=== PATIENT | female | born 1965 | race Caucasian/White ===

== ENCOUNTER → 2016-08-01 | Outpatient (CLI) | payer BC ==
[~2016-08-01] MED LIST: ALD250 PO; AMLO-114 PO; BIOTPOW17 PO; CALC-51 PO; CIPR-255 PO; DULO60CA44 PO; HYDC25 PO; HYDR25TA4 PO; LORA-741 PO; LPR50X PO; Lorazepam PO; METH250T21 PO; METR-163 PO; Magnesium PO; Maxalt PO; NASACORT; ONDA4TAB10 SL; OXYC1TAB3 PO; POLY335019 PO; POTAPOW29 PO; RIZA10TA18 PO; SERT1TAB68 PO; VITAMIN C PO; metoprolol PO
--- NOTE | 2016-08-01 16:02 | MAMMOGRAPHY REPORT ---
BILATERAL DIGITAL SCREENING MAMMOGRAM TOMOSYNTHESIS WITH CAD: 08/01/2016 CLINICAL HISTORY: Routine screening. Patient has no complaints. TECHNIQUE: Breast tomosynthesis in addition to standard 2D mammography was performed. Current study was also evaluated with a Computer Aided Detection (CAD) system. COMPARISON: Comparison is made to exams dated: 07/20/2015 mammogram, 06/30/2014 mammogram, 06/24/2013 m ammogram, 06/08/2012 mammogram, and 05/02/2011 mammogram - [facility]. BREAST COMPOSITION: There are scattered areas of fibroglandular density in both breasts. FINDINGS: No suspicious masses, calcifications, or areas of architectural distortion are noted in e ither breast. There has been no significant interval change compared to prior exams. IMPRESSION: ACR BI-RADS CATEGORY 1: NEGATIVE There is no mammographic evidence of malignancy. A 1 year screening mammogram is recommended. The p atient will receive written notification of the results. Approximately 10% of breast cancers are not detected with mammography. A negative mammographic repor t should not delay biopsy if a clinically suggestive mass is present. Maribel Marques M.D. 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
== END | disposition home or self-care (01) ==
LOC: C.MAMM 13:13
PROVIDERS: ATTEND Nurse Practitioner Family
DX: Z12.31 Encounter for screening mammogram for malignant neoplasm of breast (principal)

== ENCOUNTER 2017-02-08 04:50 | Emergency (ER) | payer BC ==
[~2017-02-08] VITALS: Ht 154.9 cm; Wt 91.1 kg
[~2017-02-08 04:50] MED LIST changes: -CIPR-255 PO; -DULO60CA44 PO; -HYDR25TA4 PO; -LORA-741 PO; -LPR50X PO; -METH250T21 PO; -METR-163 PO; -ONDA4TAB10 SL; -OXYC1TAB3 PO; -POLY335019 PO; -RIZA10TA18 PO
[2017-02-08 04:53] VITALS: TEMP 36.9; Ht 154.9 cm; Wt 91.1 kg
--- NOTE | 2017-02-08 05:12 | EMERGENCY ROOM VISIT NOTE ---
History Report prepared by Gracie: Braydon Lang Under the Supervision of: Dr. Gm Hernandez M.D. First contact with patient: 04:58 Chief Complaint: GI ASSESSMENT Stated Complaint: BOWEL BLOCKAGE AND BLOOD History of Present Illness The patient is a 51 year old female who presents to the Emergency Room with complaints of persistent left lower abdominal pain that started yesterday. She says that she does not feel well, and has been nauseous and feels like vomiting. The patient states that after the pain came on, she felt like she had to have a bowel movement, so she sat on the toilet, but as she was trying to push, she broke out in sweats from head to toe, and she had to sit on the toilet for 2 hours before finally having a bowel movement. The patient states that she had streaks of blood in the stool, but the blood was not filling the toilet. She notes that her pain has persisted. She denies any rashes or vaginal bleeding. She adds that she has had symptoms like this in the past, once she thinks due to pain medications after surgery. Source of History: patient Onset: Yesterday Position: abdomen (LLQ) Timing: other (persistent) Associated Symptoms: + diaphoresis, + nausea, + hematochezia, No rash Note: Associated symptoms: Feels like vomiting. Denies vaginal bleeding. Review of Systems See HPI for pertinent positives & negatives. A total of 10 systems reviewed and were otherwise negative. Past Medical & Surgical Medical Problems: (1) Anxiety (2) Depression (3) HTN (hypertension) Family History No pertinent family history Social History Smoking Status: Never Smoker Marital Status: Occupation Status: employed Current/Historical Medications Scheduled Amlodipine (Norvasc), 10 MG PO DAILY Ciprofloxacin Hcl (Cipro), 500 MG PO BID Duloxetine Hcl (Cymbalta), 60 MG PO DAILY Hydrochlorothiazide (Hctz), 25 MG PO DAILY Methyldopa (Aldomet), 250 MG PO BID Metoprolol Tartrate (Metoprolol Tartrate), 1 TAB PO DAILY Metronidazole (Flagyl), 500 MG PO TID Ondasetron Odt (Zofran Odt), 4 MG SL Q6H Scheduled PRN Lorazepam (Ativan), 0.5 MG PO DAILY PRN for Anxiety Oxycodone Immediate Rel Tab (Roxicodone Ir), 1-2 TAB PO Q4H PRN for Severe Pain Polyethylene Glycol 3350 (Miralax), 17 GM PO BID PRN for Constipation Rizatriptan Benzoate (Maxalt), 10 MG PO DAILY PRN for Headache Allergies Coded Allergies: Bupropion (Verified Allergy, Mild, Anxious feeling, 02/08/17) Lisinopril (Verified Allergy, Mild, Unknown, 02/08/17) Diltiazem (Verified Allergy, Unknown, COUGH, 02/08/17) Fexofenadine (Verified Allergy, Unknown, HTN, 02/08/17) Losartan (Verified Allergy, Unknown, Cough, 02/08/17) Pseudoephedrine (Verified Allergy, Unknown, HTN, 02/08/17) Venlafaxine (Verified Allergy, Unknown, HTN, 02/08/17) Physical Exam Vital Signs Date Time Temp Pulse Resp B/P (MAP) Pulse Ox O2 Delivery O2 Flow Rate FiO2 02/08/17 09:00 84 20 154/67 98 02/08/17 07:42 95 20 155/100 97 Room Air 02/08/17 06:22 88 18 172/75 98 Room Air 02/08/17 04:53 36.9 114 20 154/90 97 Room Air Physical Exam GENERAL: Patient is uncomfortable appearing and in moderate distress. HEENT: No acute trauma, normocephalic atraumatic, mucous membranes moist, no nasal congestion, no scleral icterus. NECK: No stridor, no adenopathy, no meningismus, trachea is midline. LUNGS: No dyspnea. Clear to auscultation and equal bilaterally. No wheeze, no rhonchi. HEART: Regular rate and rhythm. No murmurs, rubs, gallops appreciated. ABDOMEN: Soft, left lower quadrant tenderness to palpation, bowel sounds positive, no masses appreciated, no peritonitis. RECTAL: Small anterior fissure, has dark firm bloody stool. BACK: No midline tenderness, no CVA tenderness EXTREMITIES: Normal motion all extremities, no cyanosis, no edema. NEUROLOGIC: Alert and oriented, no acute motor or sensory deficits, no focal weakness, cranial nerves grossly intact. SKIN: No rash, no jaundice, no diaphoresis. Medical Decision & Procedures Laboratory Results 02/08/17 05:35 Red Blood Count 5.11, Mean Corpuscular Volume 87.9, Mean Corpuscular Hemoglobin 29.4, Mean Corpuscular Hemoglobin Concent 33.4, Mean Platelet Volume 9.5, Neutrophils (%) (Auto) 85.5, Lymphocytes (%) (Auto) 8.5, Monocytes (%) (Auto) 5.5, Eosinophils (%) (Auto) 0.0, Basophils (%) (Auto) 0.1, Neutrophils # (Auto) 16.39, Lymphocytes # (Auto) 1.63, Monocytes # (Auto) 1.05, Eosinophils # (Auto) 0.00, Basophils # (Auto) 0.02 02/08/17 05:35 Test 02/08/17 05:20 02/08/17 05:35 02/08/17 05:46 Urine Color DK YELLOW Urine Appearance TURBID (CLEAR) Urine pH 5.0 (4.5-7.5) Urine Specific [place] 1.026 (1.000-1.030) Urine Protein 2+ (NEG) Urine Glucose (UA) NEG (NEG) Urine Ketones TRACE (NEG) Urine Occult Blood TRACE (NEG) Urine Nitrite NEG (NEG) Urine Bilirubin NEG (NEG) Urine Urobilinogen NEG (NEG) Urine Leukocyte Esterase SMALL (NEG) Urine WBC (Auto) 10-30 /hpf (0-5) Urine RBC (Auto) 0-4 /hpf (0-4) Urine Hyaline Casts (Auto) 0 /lpf (0-5) Urine Epithelial Cells (Auto) >30 /lpf (0-5) Urine Bacteria (Auto) NEG (NEG) Urine Renal Epithelial Cells /lpf (0-5) Urine Crystals AMORPHOUS SEDIMENT (NONE Urine Pathogenic Casts /lpf (0) Urine Test NEG (NEG) White Blood Count 19.16 K/uL (4.8-10.8) Red Blood Count 5.11 M/uL (4.2-5.4) Hemoglobin 15.0 g/dL (12.0-16.0) Hematocrit 44.9 % (37-47) Mean Corpuscular Volume 87.9 fL (80-100) Mean Corpuscular Hemoglobin 29.4 pg (25-34) Mean Corpuscular Hemoglobin Concent 33.4 g/dl (32-36) Platelet Count 385 K/uL (130-400) Mean Platelet Volume 9.5 fL (7.4-10.4) Neutrophils (%) (Auto) 85.5 % Lymphocytes (%) (Auto) 8.5 % Monocytes (%) (Auto) 5.5 % Eosinophils (%) (Auto) 0.0 % Basophils (%) (Auto) 0.1 % Neutrophils # (Auto) 16.39 K/uL (1.4-6.5) Lymphocytes # (Auto) 1.63 K/uL (1.2-3.4) Monocytes # (Auto) 1.05 K/uL (0.11-0.59) Eosinophils # (Auto) 0.00 K/uL (0-0.5) Basophils # (Auto) 0.02 K/uL (0-0.2) RDW Standard Deviation 40.1 fL (36.4-46.3) RDW Coefficient of Variation 12.5 % (11.5-14.5) Immature Granulocyte % (Auto) 0.4 % Immature Granulocyte # (Auto) 0.07 K/uL (0.00-0.02) Est Creatinine Clear Calc Drug Dose 77.7 ml/min Estimated GFR () 88.8 Estimated GFR (Non- 76.6 BUN/Creatinine Ratio 12.3 (10-20) Calcium Level 9.7 mg/dl (8.5-10.1) Total Bilirubin 0.6 mg/dl (0.2-1) Direct Bilirubin 0.2 mg/dl (0-0.2) Aspartate Amino Transf (AST/SGOT) 39 U/L (15-37) Alanine Aminotransferase (ALT/SGPT) 68 U/L (12-78) Alkaline Phosphatase 118 U/L (45-117) Total Protein 8.0 gm/dl (6.4-8.2) Albumin 4.3 gm/dl (3.4-5.0) Lipase 109 U/L (73-393) Bedside Hemoglobin 15.3 g/dl (12.0-16.0) Bedside Hematocrit 45 % (37-47) Bedside Sodium 138 mEq/L (135-144) Bedside Potassium 3.1 mEq/L (3.3-5.0) Bedside Chloride 98 mEq/L (101-112) Bedside Total CO2 25 mEq/l (24-31) Anion Gap 19.0 mmol/L (16-25) Bedside Blood Urea Nitrogen 10 mg/dl (7-18) Bedside Creatinine 0.7 mg/dl (0.6-1.3) Bedside Glucose (other) 140 mg/dl (70-99) Bedside Ionized Calcium (Vicente) 1.08 mmol/l (1.12-1.32) Medications Administered Medications (Trade) Dose Ordered Sig/Valeriy Route Start Time Stop Time Status Last Admin Dose Admin Sodium Chloride 1,000 ml @ 999 mls/hr Q1H1M STAT IV 02/08/17 05:28 02/08/17 06:28 DC 02/08/17 05:54 999 MLS/HR Ondansetron HCl (Zofran Inj) 4 mg NOW STAT IV 02/08/17 05:28 02/08/17 05:29 DC 02/08/17 05:54 4 MG Morphine Sulfate (MoRPHine SULFATE INJ) 6 mg NOW STAT IV 02/08/17 07:23 02/08/17 07:25 DC 02/08/17 07:38 6 MG Promethazine HCl 25 mg/Sodium Chloride 51 ml @ 204 mls/hr NOW STAT IV 02/08/17 07:23 02/08/17 07:37 DC 02/08/17 07:42 204 MLS/HR Oxycodone HCl (Roxicodone Immediate Rel 5MG Home Pack) 1 homepack UD ONCE PO 02/08/17 07:30 02/08/17 07:31 DC 02/08/17 07:39 1 HOMEPACK Ondansetron HCl (ZOFRAN ODT 4MG Home Pack) 1 homepack UD ONCE PO 02/08/17 07:30 02/08/17 07:31 DC 02/08/17 07:39 1 HOMEPACK Ciprofloxacin (Cipro Tab) 500 mg NOW STAT PO 02/08/17 07:23 02/08/17 07:25 DC 02/08/17 07:37 500 MG Metronidazole (Flagyl Tab) 500 mg NOW STAT PO 02/08/17 07:23 02/08/17 07:25 DC 02/08/17 07:37 500 MG ED Course 0505: The patient was evaluated in room B9. A complete history and physical exam was performed. Medical Decision Differential: Appendicitis, Diverticulitis, PUD/Gastritis, Biliary Pathology, UTI, Pyelonephritis, Renal Colic, Bowel Obstruction, Aortic Pathology, Acute Coronary Syndrome, amongst other pathologies entertained. 51 yr old female with LLQ abdominal pain waxing/waning associated with constipation and noting blood in stool after straining for 2 hours on toilet yesterday. CT with decending colitis no surgical findings. WBC modestly elevated. Initially with minimal pain though had episode here for which IV pain meds given. Exam with rectal fissure likely from straining/constipation. Reviewed with GI who agree with trying cipro/flagyl and will need to have loose stools thus miralax. Will need follow up with GI. OXy zofran for symptoms. reviewed at length symptoms requiring return and that we are always here to help. She is comfortable with this plan. Medication Reconcilliation Current Medication List: was personally reviewed by me Blood Pressure Screening Patient's blood pressure: Elevated blood pressure Blood pressure disposition: Elevated BP felt to be situational Impression Primary Impression: Infectious colitis Additional Impression: Rectal fissure Scribe Attestation The scribe's documentation has been prepared under my direction and personally reviewed by me in its entirety. I confirm that the note above accurately reflects all work, treatment, procedures, and medical decision making performed by me. Departure Information Dispostion Home / Self-Care Prescriptions Polyethylene Glycol 3350 (MIRALAX) 1 Pow Pow 17 GM PO BID Y for Constipation, #255 GM Prov: Gm Hernandez M.D. 02/08/17 Ondasetron Odt (ZOFRAN ODT) 4 Mg Tab 4 MG SL Q6H for Nausea, #12 TAB Prov: Gm Hernandez M.D. 02/08/17 Oxycodone Immediate Rel Tab (ROXICODONE IR) 5 Mg Tab 1-2 TAB PO Q4H Y for Severe Pain, #12 TAB Prov: Gm Hernandez M.D. 02/08/17 Metronidazole (Flagyl) 500 Mg Tab 500 MG PO TID for 10 Days, #30 TAB Prov: Gm Hernandez M.D. 02/08/17 Ciprofloxacin Hcl (CIPRO) 500 Mg Tab 500 MG PO BID, #20 TAB Prov: Gm Hernandez M.D. 02/08/17 Referrals Kacey Salas (PCP) Vanda Knight, DO Patient Instructions My [facility] Additional Instructions Keep well hydrated. Eat a light diet over the next few days. Return if fevers, increased pain, vomiting, passing out, increased blood in stool or other concerns. Please follow up with your primary care provider in the next few days for further evaluation. You will likely need a Colonoscopy in next 3-4 weeks. You should follow up with Draw Operator for this. It is important you are having loose stools to avoid constipation and further rectal tearing. Use Miralax every 12 hours until loose stools and then just once daily. Stop if significant diarrhea. You have received a narcotic pain medication prescription. These medications may cause drowsiness and should not be used with other sedative medications. Do not drive, drink alcohol, perform dangerous activities, nor make important decisions after taking these medications. long-term use or inappropriate use may lead to addiction. Problem Qualifiers
[2017-02-08] MEDS ORDERED: SODIUM CHLORIDE 0.9% 1000ML 1,000 ML IV STA (05:28)
[2017-02-08] MEDS ORDERED: ONDANSETRON INJ 2 MG/ML 2 ML VIAL IV STA (05:28)
[2017-02-08 05:47] LABS: URINE APPEARANCE TURBID (CLEAR); URINE COLOR DK YELLOW; URINE EPITHELIAL CELL AUTO >30 /lpf (0-5); URINE NITRITE NEG (NEG); URINE SPECIFIC GRAVITY 1.026 (1.000-1.030); UROBILINOGEN NEG (NEG); ZZUR CULT IF INDIC CLEAN CATCH YES
[2017-02-08 05:51] LABS: BASO % 0.1 %; BASO ABS # 0.02 K/uL (0-0.2); COMPLETE YES; HEMATOCRIT 44.9 % (37-47); IG% 0.4 %; LYMPH % 8.5 %; LYMPH ABS # 1.63 K/uL (1.2-3.4); MEAN CELL VOLUME 87.9 fL (80-100); MEAN CORPUSCULAR HEMOGLOBIN 29.4 pg (25-34); MEAN CORPUSCULAR HGB CONC 33.4 g/dl (32-36); MEAN PLATELET VOLUME 9.5 fL (7.4-10.4); MONO % 5.5 %; NEUT % 85.5 %; PLATELET COUNT 385 K/uL (130-400); RED BLOOD COUNT 5.11 M/uL (4.2-5.4); WHITE BLOOD COUNT 19.16 K/uL (4.8-10.8)
[2017-02-08 05:59] LABS: ISTAT CREATININE 0.7 mg/dl (0.6-1.3); ISTAT HEMOGLOBIN 15.3 g/dl (12.0-16.0); ISTAT IONIZED CALCIUM 1.08 mmol/l (1.12-1.32)
[2017-02-08 06:02] LABS: MANUAL MICROSCOPIC REQUIRED? NO; REVIEW REQ? YES; URINE BILIRUBIN NEG (NEG)
[2017-02-08 06:17] LABS: BUN/CREATININE RATIO 12.3 (10-20); CALCIUM 9.7 mg/dl (8.5-10.1); CREATININE 0.87 mg/dl (0.60-1.20)
[2017-02-08 06:21] LABS: POTASSIUM 3.3 mmol/L (3.5-5.1)
[2017-02-08] MEDS ORDERED: OPTIRAY 320 IV PRN (06:30)
[2017-02-08] MEDS ORDERED: METRONIDAZOLE 250 MG TAB PO STA (07:23)
[2017-02-08] MEDS ORDERED: CIPROFLOXACIN 500 MG TAB PO STA (07:23)
[2017-02-08] MEDS ORDERED: PROMETHAZINE HCL INJ 25 MG in SODIUM CHLORIDE 0.9% 50ML 50 ML IV STA (07:23)
[2017-02-08] MEDS ORDERED: MoRPHine SULFATE 10 MG/ML CARP/VIAL IV STA (07:23)
[2017-02-08] MEDS ORDERED: CIPR-255 PO (07:28)
[2017-02-08] MEDS ORDERED: METR-163 PO (07:28)
[2017-02-08] MEDS ORDERED: ONDA4TAB10 SL (07:29)
[2017-02-08] MEDS ORDERED: OXYC1TAB3 PO (07:29)
[2017-02-08] MEDS ORDERED: ONDANSETRON HOME PACK 4MG OD TAB PO ONE (07:30)
[2017-02-08] MEDS ORDERED: OXYCODONE IR HOME PACK PO ONE (07:30)
[2017-02-08] MEDS ORDERED: POLY335019 PO (07:46)
--- NOTE | 2017-02-08 07:59 | DIAGNOSTIC IMAGING REPORT ---
ABD/PELVIS IV CONTRAST ONLY CLINICAL HISTORY: 51 years-old Female presenting with LLQ abdominal pain, concern for bowel blockage. TECHNIQUE: Multidetector CT of the abdomen and pelvis was performed after the administration of intravenous contrast. IV contrast: 95 mL of Optiray 320. A dose lowering technique was used consistent with the principles of ALARA (as low as reasonably achievable). COMPARISON: None. CT DOSE (mGy.cm): The estimated cumulative dose is 803.06 mGy.cm. FINDINGS: Associate Business Analyst topogram: Unremarkable. Lung bases: Minimal dependent changes at the lung bases likely atelectasis. Normal heart size. No pericardial or pleural effusion. Liver: Normal morphology. Suggestion of hepatic steatosis. No focal lesion. Patent hepatic vasculature. Biliary: No intrahepatic or extrahepatic biliary ductal dilatation. Normal gallbladder. Pancreas: Mild parenchymal atrophy. Spleen: Normal. Adrenal glands: Normal. Kidneys and ureters: Ovoid 11 mm hypodensity at the posterior aspect of the upper pole the right kidney likely simple cyst. No hydronephrosis. No nephrolithiasis. Normal ureters. Bladder: Incompletely evaluated secondary to underdistention. Pelvic organs: Uterus and ovaries normal. Bowel: Wall thickening of the descending colon allowing for underdistention. Mild pericolonic inflammatory change at the junction of the descending and sigmoid colon. Vasculature to this region appears patent. Normal appendix. No bowel obstruction. Peritoneal cavity: No free fluid or intraperitoneal gas. Vasculature: Atherosclerosis of the normal caliber abdominal aorta. IVC patent. Lymph nodes: Few prominent mesenteric lymph nodes, likely reactive. No pathologically enlarged lymph nodes in the abdomen or pelvis. Abdominal wall: Normal. Musculoskeletal: Degenerative changes of the spine. IMPRESSION: 1. Apparent chronic wall thickening in the descending colon with mild pericolonic inflammatory change at the junction of the descending and sigmoid colon. This distribution would be most compatible with an infectious colitis. Patent vasculature. 2. Likely reactive mesenteric lymph nodes. Electronically signed by: Dillan Chaves M.D. 02/08/2017 7:58 AM Dictated Date/Time: 02/08/2017 7:52 AM
[2017-02-08] MEDS ORDERED: LPR50X PO (08:06)
[2017-02-08] MEDS ORDERED: HYDR25TA4 PO (08:06)
[2017-02-08] MEDS ORDERED: METH250T21 PO (08:06)
[2017-02-08] MEDS ORDERED: RIZA10TA18 PO (08:06)
[2017-02-08] MEDS ORDERED: LORA-741 PO (08:06)
[2017-02-08] MEDS ORDERED: DULO60CA44 PO (08:08)
[2017-02-08 09:00] VITALS: BP 154/67; PULSE 84; O2SAT 98
== END 2017-02-08 09:00 | disposition home or self-care (01) ==
LOC: C.EDB 04:50
DX: A09 Infectious gastroenteritis and colitis, unspecified (principal); K60.2 Anal fissure, unspecified; F41.9 Anxiety disorder, unspecified; F32.9 Major depressive disorder, single episode, unspecified; I10 Essential (primary) hypertension; Z79.899 Other long term (current) drug therapy